=== PATIENT | female | born 1995 | race Caucasian/White ===

== ENCOUNTER → 2024-01-27 08:20 | Outpatient (REF) | payer OTHER, SELFPAY | LOC: PNTC 08:20 | PROVIDERS: ATTENDING PHYSICIAN Nurse Practitioner Women's Health | DX: Z36.0 Encounter for antenatal screening for chromosomal anomalies (principal); Z36.82 Encounter for antenatal screening for nuchal translucency | CPT/HCPCS: 76801; 76813 ==

== ENCOUNTER → 2024-03-22 10:58 | Outpatient (REF) | payer OTHER, SELFPAY | LOC: PNTC 10:58 | DX: Z36.3 Encounter for antenatal screening for malformations (principal) | CPT/HCPCS: 76805 ==